=== PATIENT | female | born 1995 | race Caucasian/White ===

== ENCOUNTER 2024-11-12 14:46 | Emergency (ER) | payer SELFPAY ==
[2024-11-12] VITALS (7 sets, daily range): BP systolic 101–138; BP diastolic 74–96; BMI 28.2
[2024-11-12 15:16] LABS: Hematocrit 40.3 % (37.0-47.0); Hemoglobin 13.5 g/dL (12.0-16.0); Mean Corp Hgb Conc. 33.5 g/dL (33.0-37.0); Mean Corpuscular Volume 84.0 fL (81.0-99.0); Nucleated Red Blood Cells % 0 %; Platelet Count 343 10^3/uL (130-400); Red Cell Dist. Width 13.1 % (11.5-14.5)
[2024-11-12 15:28] LABS: HCG, Serum Qualitative Screen Negative
[2024-11-12 16:01] LABS: ALT (SGPT) 16 U/L (0-35); AST (SGOT) 19 U/L (14-36); Albumin 4.4 g/dl (3.5-5.0); Alkaline Phosphatase 59 U/L (38-126); Blood Urea Nitrogen 11 mg/dl (7-17); Calcium 9.4 mg/dl (8.4-10.2); Carbon Dioxide 25 mmol/L (22-30); Chloride 107 mmol/L (98-107); Glucose 103 mg/dl (70-99); Potassium 3.9 mmol/L (3.5-5.1); Sodium 138 mmol/L (135-145); Total Protein 7.5 g/dl (6.3-8.2); eGFR > 60.00
--- NOTE | 2024-11-12 19:11 | ED.GENMED ---
History of Present Illness
General
Chief Complaint: Dizziness
Source: patient
Exam Limitations: none
Time Seen by Provider: 11/12/24 18:13
Nursing documentation reviewed up to this point in time: agreed with
History of Present Illness
History of Present Illness:
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
chronic Lyme. Does have a neurologist for this. Her main concern is that she has been feeling motion sickness continuously over the past few days has felt she has had difficulty finding words and has had slurred speech. She is felt sharp stabbing
acute pain to the left side of her face and also rapid uncontrolled eye movements. She also is felt that her heart rate has been fluctuating rapidly that is not related to changes in physical activity.
Review of Systems
Review of Systems
Allergies reviewed?: Yes
All Other Systems: ROS reviewed and negative except as documented in HPI and ROS
Phy Exam
Physical Exam
Physical Exam:
GENERAL: Alert , in no apparent distress
EYE: pupils equal and reactive
NECK: Supple, no significant adenopathy.
ENT: o/p clr, mmm.
CARDIAC: Regular rate and rhythm .
LUNGS: Clear breath sounds bilaterally, no acute respiratory distress, no wheezes/rales/rhonchi
ABDOMEN: Soft, without focal tenderness, no r/g, no cvat
NEUROLOGICAL: Alert and oriented, no focal neuro deficits
SKIN: Warm and dry, skin intact.
MUSCULOSKELETAL: No edema, well perfused.
PSYCH: Normal and appropriate interaction.
Course
Orders/Labs/Results
Orders:
Orders
11/12/24 14:57
Test Result ONCE
11/12/24 15:01
Complete Blood Count/With Diff Urgent
Comprehensive Metabolic Panel Urgent
HCG, Serum Qualitative Screen Urgent
TSH Reflex To Free T4 Urgent
Comment: ADD ON
11/12/24 19:04
CT Head W/o Iv Contrast Urgent
Comment:
Reason For Exam: slurred spoeech dizziness, facial tingling left si
11/12/24 19:05
Add On- LAB Urgent
Tests Added?: tsh free t4
11/12/24 19:28
Urinalysis Reflex To Culture Urgent
Date Specimen was Collected: 11/12/24
Time Specimen was Collected: 19:27
Abnormal Lab Results
11/12/24
15:01
Creatinine 0.5 L mg/dL
(0.6-1.0)
Glucose 103 H mg/dl
(70-99)
11/12/24 15:01
11/12/24 15:01
Vital Signs
Initial and Last Documented VS:
Initial Vital Signs
Temp Pulse Resp BP Pulse Ox
97.8 F 80 16 138/85 96
11/12/24 14:48 11/12/24 14:48 11/12/24 14:48 11/12/24 14:48 11/12/24 14:48
Last Documented Vital Signs
Temp Pulse Resp BP Pulse Ox
98.7 F 82 23 116/80 97
11/12/24 19:30 11/12/24 22:00 11/12/24 22:00 11/12/24 22:00 11/12/24 22:00
MDM/Problems Addressed
MDM/Problems Addressed:
29-year-old female presenting to the emergency department today with concerns of multiple symptoms. Ongoing over the past 3 days. She believes this is from neurological Lyme. This was diagnosed a few years ago went through many months of
antibiotic treatment. On arrival vital signs are normal. Labs unremarkable. No focality to patient's neurologic examination. CT scan negative labs unremarkable. Unclear what specifically is causing symptoms at this time. Case discussed with
neurology that does not feel this is consistent with any life-threatening neurologic process. She was advised for close outpatient follow-up. Return precautions given.
*Pulse Oximetry
SaO2: 96
Oxygen Mode of Delivery: Room air
Patient hypoxic: no (97)
*Critical Care Note
Total Time (30-74mins, 75-104mins- exclusive of procedures): Not Applicable
ED Attending Note
-
Portions of this chart may have been created with voice recognition software.� Occasional wrong word or��sound alike� substitutions may have occurred due to the inherent limitations of voice recognition software.
Discharge Plan
Departure
Patient Disposition: Home (Routine Discharge)
Date of Disposition: 11/12/24
Time of Disposition: 22:45
Patient with high blood pressure during this ER visit?: No
Condition: Good
Covid-19: Not Applicable
Discharge Problem:
Dizziness, Palpitations
Instructions: Dizziness, Nonvertigo, (DC)
Referrals:
[facility] [Outside] - Follow up in 5-7 days
NONE,* [Family Provider, Internal Medicine]
Activity Restrictions/Additional Instructions:
You came to the emergency department today with multiple symptoms. Here you have a reassuring assessment. Please follow closely with your neurologist and primary care team. Return for any worsening, new or concerning symptoms.
Interventions
Interventions:
*Risk Screen - Suicide Last Done: 11/12/24 14:48
*Neglect/Abuse Screening Last Done: 11/12/24 17:37
*ED COVID-19 Vaccine History Last Done: 11/12/24 17:37
ED- Neurological Assessment Last Done: 11/12/24 19:30
ED Swallowing Screen Last Done: 11/12/24 17:38
Discharge Date and Time
Print Language: JAPANESE
[2024-11-12 19:36] LABS: Urine Character Clear (Clear)
== END 2024-11-12 23:13 | disposition home or self-care (01) ==
LOC: EMR 14:46
PROVIDERS: Physician Assistant; EMERGENCY PHYSICIAN Emergency Medicine
DX: R00.2 Palpitations (principal); R42 Dizziness and giddiness; R47.81 Slurred speech; R20.2 Paresthesia of skin; R11.0 Nausea; K21.9 Gastro-esophageal reflux disease without esophagitis; K58.9 Irritable bowel syndrome, unspecified; D50.9 Iron deficiency anemia, unspecified; F41.9 Anxiety disorder, unspecified; F32.A Depression, unspecified; F43.10 Post-traumatic stress disorder, unspecified; Z87.898 Personal history of other specified conditions; Z88.6 Allergy status to analgesic agent
CPT/HCPCS: 99284; 70450; 80053; 81003; 84443; 84703; 85025